=== PATIENT | female | born 1995 | race Caucasian/White ===

== ENCOUNTER → 2020-10-12 | Outpatient (CLI) | payer OTHER ==
[~2020-10-12] MED LIST: CEFUROXIME500 MG PO; IBUPROFEN800 MG PO; PROTONIX40 MG PO
== END ==
LOC: MAMO 10:30
DX: N63.10 Unspecified lump in the right breast, unspecified quadrant (principal); R92.8 Other abnormal and inconclusive findings on diagnostic imaging of breast
CPT/HCPCS: 76641-RT

== ENCOUNTER 2020-12-08 12:13 | Emergency (ER) | payer OTHER ==
[2020-12-08 13:31] LABS: HEMOGLOBIN 12.5 gm/dl (12.3-15.3); RED BLOOD COUNT 4.32 M/UL (4.00-5.10); WHITE BLOOD COUNT 10.1 K/UL (4.5-11.0)
[2020-12-08 14:03] LABS: BUN/CREATININE RATIO 13 (0-10)
[2020-12-08] MEDS ORDERED: PROTONIX40 MG PO (15:47)
[2020-12-08] MEDS ORDERED: CEFUROXIME500 MG PO (15:47)
[2020-12-08] MEDS ORDERED: IBUPROFEN800 MG PO (15:47)
== END 2020-12-08 16:10 | disposition home or self-care (01) ==
LOC: ER1 12:13
PROVIDERS: Physician Assistant
DX: R09.1 Pleurisy (principal); N39.0 Urinary tract infection, site not specified
CPT/HCPCS: 71045; 80053; 80307; 81001; 82550; 82553; 83874; 83880; 84484; 84703; 85025; 85379; 85610; 85730; 93005; 96374; 96375; 99285; J0696; J1885